=== PATIENT | female | born 1970 | race Caucasian/White ===

== ENCOUNTER 2017-03-28 05:33 | Day surgery (SDC) | payer BC ==
[~2017-03-28 05:33] MED LIST: AROMASIN25 M1 PO; CLARITIN-D 121 EAC1 PO; EFFEXOR XR37.5 M1 PO; FISH OIL 11000 MG/CA PO; IBUPROFEN200 M2 PO; MAGNESIUM400 M2 PO; NASONEX17 GM; NEXIUM 24HR20 MG PO; PROTONIX40 M2 PO; TYLENOL EXTRA500 M1 PO; VITAMIN D31000 UNI3 PO; [UNRECOGNIZED DRUG - OTHER] PO
== END 2017-03-28 14:20 ==
LOC: SRG 05:33 → SHSB 05:34 → ORW 07:29 → PACU 09:11 → SHSB 10:50
PROC: 0WUF4JZ Supplement Abdominal Wall with Synthetic Substitute, Percutaneous Endoscopic Approach (ICD-10-PCS; principal; 2017-03-28)
PROC: 8E0W4CZ Robotic Assisted Procedure of Trunk Region, Percutaneous Endoscopic Approach (ICD-10-PCS; 2017-03-28)
DX: K43.9 Ventral hernia without obstruction or gangrene (principal); M19.90 Unspecified osteoarthritis, unspecified site; Z88.5 Allergy status to narcotic agent; Z91.041 Radiographic dye allergy status; Z90.711 Acquired absence of uterus with remaining cervical stump; Z79.899 Other long term (current) drug therapy; Z98.51 Tubal ligation status; Z85.3 Personal history of malignant neoplasm of breast; Z85.528 Personal history of other malignant neoplasm of kidney; Z90.13 Acquired absence of bilateral breasts and nipples; Z90.49 Acquired absence of other specified parts of digestive tract; Z90.5 Acquired absence of kidney; Z98.890 Other specified postprocedural states
CPT/HCPCS: C1781; J0690; J1170; J2250; J2270; J2765; J3010